=== PATIENT | male | born 1970 | race Hispanic/Latino ===

== ENCOUNTER 2018-09-09 05:11 | Emergency (ER) | payer SELFPAY ==
[2018-09-09] MEDS ORDERED: Ketorolac Tromethamine 60 MG/2 ML VIAL ONE (05:36)
[2018-09-09] MEDS ORDERED: HYDROcodone/Acetaminophen 5/325 mg Tablet ONE ×3 (05:36→05:37)
== END 2018-09-09 05:59 | disposition home or self-care (01) ==
LOC: SCSER 05:11
DX: M54.5 Low back pain (principal); Z79.899 Other long term (current) drug therapy
CPT/HCPCS: 96372; J1885